=== PATIENT | female | born 1970 | race Caucasian/White ===

== ENCOUNTER 2022-11-08 21:32 | Day surgery (SDC) | payer OTHER, SELFPAY ==
[2022-11-08 21:35] VITALS: BP 128/92; PULSE 77; RESP 18; TEMP 36.2; O2SAT 99
--- NOTE | 2022-11-08 22:06 | ED_ITS ---
HPI - Abdominal Pain General Chief Complaint: Abdominal Pain Stated Complaint: Abdominal Pain, nausea Time Seen by Provider: 11/08/22 21:46 History of Present Illness HPI narrative: Pt is a 52 year old woman who comes in with 8 hours of diffuse abd pain. Pt had chicken salad for lunch and since that time has had nausea, vomiting, diffuse abd pain and diarrhea. No blood in stool or vomit. No fever or chills. Pt states that abd pain is moderate and diffuse. Pt has had some occasional similar symptoms previously which have been selflimited. Pt has had no sick contacts. No neurological symptoms. No recent travel. Related Data Home Medications Medication Instructions Recorded Confirmed levothyroxine 50 mcg capsule 50 mcg PO DAILY 11/08/22 11/08/22 omeprazole 20 mg capsule,delayed 20 mg PO DAILY 11/08/22 11/08/22 release spironolactone 100 mg tablet 100 mg PO DAILY 11/08/22 11/08/22 Allergies Allergy/AdvReac Type Severity Reaction Status Date / Time Sulfa (Sulfonamide Allergy Mild Vision Verified 11/08/22 21:41 Antibiotics) Changes Review of Systems Status of ROS Reports: 10 or more systems reviewed and unremarkable except as noted in History and below [facility] Medical History (Updated 11/09/22 @ 00:49 by Marcin Bear MD) Hypothyroidism Social History Smoking Status: Never smoker Do you use any of these nicotine containing products: None Second hand tobacco smoke exposure: No How often do you have a drink containing alcohol: monthly or less How many standard drinks containing alcohol do you have on a typical day: 1 or 2 How often do you have six or more drinks on one occasion: Never AUDIT-C Alcohol total score: 1 Non-prescribed substance use: denies use Exam Narrative: Exam Narrative: EXAM GENERAL: Patient appears comfortable and well. EYES: No scleral icterus. ENT: Tympanic membranes and oropharynx normal. THYROID: no thyroid nodules or thyromegaly. LYMPH: No supraclavicular or cervical lymphadenopathy. SKIN: Visible skin seen during exam normal or with benign process only. EXT: No dependent lower extremity pedal edema. HEART: Regular rate and rhythm with no murmurs, rubs, or gallops. LUNGS: Clear to auscultation bilaterally with no crackles or wheezes. ABD: Diffusely tender with no rebound. Hypoactive bowel sounds. PSYCH: Good eye contact, speech is not pressured. Const: Vital Signs, click to edit/add: Vital Signs - 24 hr 11/08/22 21:35 11/08/22 23:00 Temperature 97.1 F L Pulse Rate [Right Pulse Oximeter] 77 Respiratory Rate 18 Blood Pressure [Ri ght Upper Arm] 128/92 H Pulse Oximetry 99 99 Oxygen Delivery Me thod Room Air Course Course Hospital Course: Saline Lock placed. NS started as well as Zofran. Upreg, Ua, CBC, CMP, Lactate, Amylase, Troponin EKG requested as well as CT abd and pelvis. Reevaluation(s) Reevaluation #1: Significant elevation of LFT's noted. Left shift on CBC with a normal WBC. Bilirubin Elevated at 2.5. Ultrasound shows multiple gallstones with normal CBD and gallbladder wall thickness Case discussed with general surgery. Vital Signs Vital signs: Initial Vital Signs Temperature 97.1 F L 11/08/22 21:35 Temperature Source Temporal Artery Scan 11/08/22 21:35 Pulse Rate 77 11/08/22 21:35 Pulse Rhythm 11/08/22 21:35 Pulse Strength 3+ Normal 11/08/22 21:35 Respiratory Rate 18 11/08/22 21:35 Blood Pressure 128/92 H 11/08/22 21:35 Blood Pressure Mean 104 11/08/22 21:35 Blood Pressure Position Sitting 11/08/22 21:35 Pulse Oximetry 99 11/08/22 21:35 Oxygen Delivery Method 11/08/22 21:35 Vital Signs Temperature 97.1 F L 11/08/22 21:35 Pulse Rate 77 11/08/22 21:35 Respiratory Rate 18 11/08/22 21:35 Blood Pressure 128/92 H 11/08/22 21:35 Pulse Oximetry 99 11/08/22 21:35 Oxygen Delivery Method 11/08/22 21:35 Temperature 97.1 F L 11/08/22 21:35 Pulse Rate 77 11/08/22 21:35 Respiratory Rate 18 11/08/22 21:35 Blood Pressure 128/92 H 11/08/22 21:35 Pulse Oximetry 99 11/08/22 23:00 Oxygen Delivery Method 11/08/22 21:35 MDM - Abdominal Pain MDM Narrative Medical decision making narrative: Pt presents with mid to RUQ abd pain. LFT's abnormal. US shows multiple gallstones with normal wall thickness and cbd diameter. Pt case discussed with general surgery. Pt admitted for hydration and repeat labs in am. Surgeon to see in the am. No antibiotics at this time. Differential Diagnosis Differential diagnosis: Likely abdominal pain, acute appendicitis, calculus of kidney, constipation, diverticulitis, gastroenteritis, pancreatitis and small bowel obstruction Lab Data Labs: Lab Results 11/08/22 11/08/22 11/08/22 Range/Units 22:15 22:15 22:15 WBC 8.57 (4.50-11.00) K/uL RBC 4.90 (4.00-5.20) m/uL Hgb 14.2 (12.0-16.0) gm/dL Hct 42.4 (33.0-51.0) % MCV 87 (80-100) fL MCH 29 (26-34) pg MCHC 34 (32-36) gm/dL RDW Coeff of German 12.8 (11.5-15.5) % Plt Count 325 (140-440) K/uL Neut % (Auto) 81.8 H (42.0-72.0) % Lymph % (Auto) 10.7 L (20-44) % [place] % (Auto) 5.8 (0.0-11.0) % Eos % (Auto) 0.5 (0.0-7.0) % Baso % (Auto) 0.5 (0.0-3.0) % Neut # (Auto) 7.00 (1.7-7.0) K/uL Lymph # (Auto) 0.90 (0.90-2.90) K/uL [place] # (Auto) 0.50 (0.00-0.90) K/UL Eos # (Auto) 0.04 (0.00-0.50) K/uL Baso # (Auto) 0.04 (0.00-0.30) K/uL Sodium 137 (135-149) mmol/L Potassium 3.9 (3.6-5.1) mmol/L Chloride 105 (96-114) mmol/L Carbon Dioxide 27 (20-32) mmol/L BUN 16 (7-30) mg/dL Creatinine 0.7 (0.5-1.5) mg/dL Estimated GFR 105 ml/min Glucose 122 H (60-115) mg/dL Lactate (0.5-1.9) mmol/L Calcium 8.8 (8.4-10.6) mg/dL Total Bilirubin 2.5 H (0.1-1.5) mg/dL AST 875 H (12-35) U/L ALT 593 H (4-35) U/L Alkaline Phosphatase 121 (40-150) U/L Troponin I (0.01-0.04) ng/mL Total Protein 7.7 (6.0-8.3) g/dL Albumin 4.4 (3.3-5.0) g/dL Amylase 69 (18-89) U/L HCG, Qual (Negative) Urine Color Jenifer A (Yellow) Urine Appearance Clear (Clear) Urine pH 7.5 (5.0-8.5) Ur Specific [place] 1.020 (1.000-1.030) Urine Protein Negative (Negative) Urine Glucose (UA) Negative (Negative) Urine Ketones 2+ A (Negative) Urine Blood Negative (Negative) Urine Nitrite Negative (Negative) Urine Bilirubin 1+ A (Negative) Urine Urobilinogen 2.0 A (0.2-1.0) Ur Leukocyte Esterase Negative (Negative) 11/08/22 11/08/22 11/08/22 Range/Units 22:15 22:15 22:31 WBC (4.50-11.00) K/uL RBC (4.00-5.20) m/uL Hgb (12.0-16.0) gm/dL Hct (33.0-51.0) % MCV (80-100) fL MCH (26-34) pg MCHC (32-36) gm/dL RDW Coeff of German (11.5-15.5) % Plt Count (140-440) K/uL Neut % (Auto) (42.0-72.0) % Lymph % (Auto) (20-44) % [place] % (Auto) (0.0-11.0) % Eos % (Auto) (0.0-7.0) % Baso % (Auto) (0.0-3.0) % Neut # (Auto) (1.7-7.0) K/uL Lymph # (Auto) (0.90-2.90) K/uL [place] # (Auto) (0.00-0.90) K/UL Eos # (Auto) (0.00-0.50) K/uL Baso # (Auto) (0.00-0.30) K/uL Sodium (135-149) mmol/L Potassium (3.6-5.1) mmol/L Chloride (96-114) mmol/L Carbon Dioxide (20-32) mmol/L BUN (7-30) mg/dL Creatinine (0.5-1.5) mg/dL Estimated GFR ml/min Glucose (60-115) mg/dL Lactate 0.6 (0.5-1.9) mmol/L Calcium (8.4-10.6) mg/dL Total Bilirubin (0.1-1.5) mg/dL AST (12-35) U/L ALT (4-35) U/L Alkaline Phosphatase (40-150) U/L Troponin I < 0.01 L (0.01-0.04) ng/mL Total Protein (6.0-8.3) g/dL Albumin (3.3-5.0) g/dL Amylase (18-89) U/L HCG, Qual Negative (Negative) Urine Color (Yellow) Urine Appearance (Clear) Urine pH (5.0-8.5) Ur Specific [place] (1.000-1.030) Urine Protein (Negative) Urine Glucose (UA) (Negative) Urine Ketones (Negative) Urine Blood (Negative) Urine Nitrite (Negative) Urine Bilirubin (Negative) Urine Urobilinogen (0.2-1.0) Ur Leukocyte Esterase (Negative) Discharge Plan Discharge Clinical Impression: Cholelithiasis Patient Disposition: Admitted As Inpatient Condition: Stable Activity Level: Other Discharge Diet: Other Prescriptions: No Action spironolactone 100 mg tablet 100 mg PO DAILY levothyroxine 50 mcg capsule 50 mcg PO DAILY omeprazole 20 mg capsule,delayed release(DR/EC) 20 mg PO DAILY
[2022-11-08] MEDS: 0.9 % SODIUM CHLORIDE 1000 ml 1,000 ML IV (22:16)
[2022-11-08] MEDS: ONDANSETRON 2 MG/ML inj 4 MG IVP (22:16)
[2022-11-08 22:28] LABS: Lactate* 0.6 mmol/L (0.5-1.9)
[2022-11-08 22:33] LABS: Basophils Absolute Auto 0.04 K/uL (0.00-0.30); Basophils Percent Auto 0.5 % (0.0-3.0); Eosinophils Absolute Auto 0.04 K/uL (0.00-0.50); Eosinophils Percent Auto 0.5 % (0.0-7.0); Hematocrit 42.4 % (33.0-51.0); Hemoglobin* 14.2 gm/dL (12.0-16.0); Immature Granulocytes Abs Auto 0.06 K/uL (0.00-0.30); Immature Granulocytes Pct Auto 0.7 %; Lymphocytes Percent Auto 10.7 % (20-44); Mean Corpuscular HGB Conc 34 gm/dL (32-36); Mean Corpuscular Hemoglobin 29 pg (26-34); Mean Corpuscular Volume 87 fL (80-100); Monocytes Percent Auto 5.8 % (0.0-11.0); Neutrophils Percent Auto 81.8 % (42.0-72.0); Platelet Count* 325 K/uL (140-440); RDW Coefficient of Variation % 12.8 % (11.5-15.5); White Blood Count* 8.57 K/uL (4.50-11.00)
[2022-11-08 22:34] LABS: Appearance Urine Clear (Clear); Bilirubin Urine 1+ (Negative); Blood Urine Negative (Negative); Color Urine Amber (Yellow); Glucose Urine Negative (Negative); Ketones Urine 2+ (Negative); Leukocyte Esterase Urine Negative (Negative); Nitrite Urine Negative (Negative); Protein Urine Negative (Negative); pH Urine 7.5 (5.0-8.5)
[2022-11-08 22:38] LABS: Slide Review Reflex No
[2022-11-08 22:46] LABS: Albumin* 4.4 g/dL (3.3-5.0); Chloride* 105 mmol/L (96-114); Potassium* 3.9 mmol/L (3.6-5.1); Sodium* 137 mmol/L (135-149)
[2022-11-08] MEDS: HYDROmorphone 0.5 mg/0.5 ml inj IVP (22:47)
[2022-11-08 22:48] LABS: HCG Qualitative* Negative (Negative)
[2022-11-08 22:49] LABS: Alanine Aminotransferase* 593 U/L (4-35); Alkaline Phosphatase* 121 U/L (40-150); Amylase* 69 U/L (18-89); Bilirubin Total* 2.5 mg/dL (0.1-1.5); Blood Urea Nitrogen* 16 mg/dL (7-30); Calcium* 8.8 mg/dL (8.4-10.6); Carbon Dioxide* 27 mmol/L (20-32); Creatinine* 0.7 mg/dL (0.5-1.5); Estimated Glomerular Filt Rate 105 ml/min; Glucose* 122 mg/dL (60-115); Total Protein* 7.7 g/dL (6.0-8.3)
[2022-11-08 23:00] VITALS: O2SAT 99
[2022-11-08 23:03] LABS: Aspartate Amino Transferase* 875 U/L (12-35); Troponin I* < 0.01 ng/mL (0.01-0.04)
--- NOTE | 2022-11-08 23:06 | CRLHL7_ITS ---
For Patients: As a result of the Century Cures Act, medical imaging exams and procedure reports are released immediately into your electronic medical record. You may view this report before your referring provider. If you have questions, please contact your health care provider. INDICATION: Right upper quadrant pain with nausea and bloating TECHNIQUE: Ultrasound abdomen limited. Sonographic images of the right upper quadrant were obtained using willams-scale and color Doppler images. COMPARISON: None FINDINGS: Liver: The liver measures 18.0 cm in length. Normal in echotexture. No masses. No intrahepatic biliary dilatation. Gallbladder: Multiple mobile stones. Normal wall thickness. No pericholecystic fluid. Common bile duct: 6 mm. Pancreas: Normal. Right kidney: 11.5 x 4.3 x 4.9 cm. Normal echotexture and cortex. No masses, stones, or hydronephrosis. IMPRESSION: Cholelithiasis without evidence for cholecystitis. Mild hepatomegaly. Dictated by Chanel Rothman MD @ 11/09/2022 12:43:25 AM (Electronically Signed)
[2022-11-09] VITALS (22 sets, daily range): BP systolic 83–112; BP diastolic 51–82; PULSE 59–87; RESP 16–18; TEMP 35.9–36.6; O2SAT 95–100
[2022-11-09 01:10] LABS: Bilirubin Direct* 1.1 mg/dL (0.0-0.5)
[2022-11-09 01:51] LABS: PCR FLU A Negative PCR FLU A (Negative); PCR FLU B Negative PCR FLU B (Negative)
[2022-11-09 01:52] LABS: SARS PCR* Negative SARS-CoV-2 (Negative)
--- NOTE | 2022-11-09 02:00 | ED.NURSE ---
Report to [facility]ER[facility]. Patient transported to [address] with all belongings.
--- NOTE | 2022-11-09 03:14 | P.IMCN_ITS ---
Date of Consult Consult date: 11/09/22 Primary Care Provider: Not a Local Provider Consult Narrative Narrative: Tripp Rojas Hospitalist ADMISSION SUPPORT NOTE eHospitalist was contacted by Dr. Bear with request of admission support. Chief complaint: Abdominal pain with nausea and vomiting HPI: The patient reports that today she went out for lunch had a green salad with egg, tuna and chicken. She will eat the chicken only but while eating felt really nauseated. She did not finish her meal because of the nausea. She left the restaurant and nausea worsened. At home she tried Gas-X and Pepto-Bismol as well as peppermint tea which has helped in the past however her symptoms only worsen and so she came in for evaluation. She reports abdominal pain feels like abdominal bloating and discomfort to the point where she felt like she needed an epidural. She reports her symptoms started shortly before [place] with nausea, occasional vomiting abdominal discomfort that seem to get better with Gas-X and peppermint tea. She thought all along it was just bad gas. It seems that most of these episodes was associated with food but not always. The pain was relieved with Dilaudid given in the ED. Review of systems other than mentioned above is negative Home Medications/Pertinent Medical History/Pertinent Social History: Reviewed see EMR for details Review of Systems Status of ROS: Reports: 10 or more systems reviewed and unremarkable except as noted in History and below [facility] Medical History (Updated 11/09/22 @ 00:49 by Marcin Bear MD) Hypothyroidism Social History Smoking Status: Never smoker Do you use any of these nicotine containing products: None Second hand tobacco smoke exposure: No How often do you have a drink containing alcohol: monthly or less How many standard drinks containing alcohol do you have on a typical day: 1 or 2 How often do you have six or more drinks on one occasion: Never AUDIT-C Alcohol total score: 1 Non-prescribed substance use: denies use Meds Home Medications and Allergies Home Medications Medication Instructions Recorded Confirmed Type levothyroxine 50 mcg capsule 50 mcg PO DAILY 11/08/22 11/08/22 History omeprazole 20 mg capsule,delayed 20 mg PO DAILY 11/08/22 11/08/22 History release spironolactone 100 mg tablet 100 mg PO DAILY 11/08/22 11/08/22 History Allergies Allergy/AdvReac Type Severity Reaction Status Date / Time Sulfa (Sulfonamide Allergy Mild Vision Verified 11/08/22 21:41 Antibiotics) Changes Exam Narrative: Exam Narrative: Exam (performed via interactive video with assistance of bedside nurse): General: Alert, cooperative, no acute distress HEENT: Oral mucosa pink and moist without erythema Lungs: Clear to auscultation bilaterally without crackle or wheeze CV: Regular rate and rhythm without loud murmur rub or gallop Abd: Bowel sounds hypoactive, does exhibit signs of pain with palpation in the right upper quadrant done by bedside nurse Ext: No pitting edema noted Skin: No rashes, bruises or lesions appreciated on gross visualization of exposed skin Neuro: Alert, oriented x 3. CN III -VII, XI, XII grossly intact, moves all extremities without any significant focal deficit appreciated by nurse Const: Vital Signs, click to edit/add: Vital Signs - 24 hr 11/08/22 21:35 11/08/22 23:00 Temperature 97.1 F L Pulse Rate [Right Pulse Oximeter] 77 Respiratory Rate 18 Blood Pressure [Ri ght Upper Arm] 128/92 H Pulse Oximetry 99 99 Oxygen Delivery Me thod Room Air Labs Labs: Short CBC 11/08/22 Range/Units 22:15 WBC 8.57 (4.50-11.00) K/uL Hgb 14.2 (12.0-16.0) gm/dL Hct 42.4 (33.0-51.0) % Plt Count 325 (140-440) K/uL BMP 11/08/22 22:15 Sodium 137 Potassium 3.9 Chloride 105 Carbon Dioxide 27 BUN 16 Creatinine 0.7 Glucose 122 H Calcium 8.8 Cardiac Enzymes 11/08/22 Range/Units 22:15 Troponin I < 0.01 L (0.01-0.04) ng/mL Liver Function 11/08/22 11/09/22 Range/Units 22:15 01:10 Total Bilirubin 2.5 H (0.1-1.5) mg/dL Direct Bilirubin 1.1 H (0.0-0.5) mg/dL AST 875 H (12-35) U/L ALT 593 H (4-35) U/L Alkaline Phosphatase 121 (40-150) U/L Albumin 4.4 (3.3-5.0) g/dL Urine 11/08/22 Range/Units 22:15 Urine Color Jenifer A (Yellow) Urine Appearance Clear (Clear) Urine pH 7.5 (5.0-8.5) Ur Specific [place] 1.020 (1.000-1.030) Urine Protein Negative (Negative) Urine Glucose (UA) Negative (Negative) Assessment and Plan Assessment and plan (1) Cholelithiasis: Status: Acute Plan Recent lab/abdominal ultrasound: Reviewed see EMR for details Assessment and Plan: 1. Abdominal pain-likely secondary to gallstone disease. Keep NPO. General surgery to evaluate. She likely needs the gallbladder removed at some point in the near future. Dilaudid as needed 2. Transaminitis-secondary to #1. Monitor 3. Hypothyroidism-continue Synthroid 4. GERD-stable on Protonix 5. 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 DVT prophylaxis-Lovenox 7. CODE STATUS full code per documentation Chart review was performed as well as evaluation of the patient via video. Thank you for involving ehospitalist. Please contact [phone] if further assistance is needed.
[2022-11-09] MEDS: 0.9 % SODIUM CHLORIDE 1000 ml 1,000 ML 75 ML IV (03:26)
[2022-11-09] MEDS: ONDANSETRON 2 MG/ML inj 4 MG IVP ×2 (03:36→11:53)
[2022-11-09] MEDS: HYDROmorphone 0.5 mg/0.5 ml inj IVP (03:37)
[2022-11-09] MEDS: SODIUM CHLORIDE 0.9 % (FLUSH) 10 ML SYRINGE 5 ML IVF (03:38)
[2022-11-09 07:03] LABS: Basophils Absolute Auto 0.06 K/uL (0.00-0.30); Basophils Percent Auto 0.8 % (0.0-3.0); Eosinophils Absolute Auto 0.15 K/uL (0.00-0.50); Immature Granulocytes Abs Auto 0.01 K/uL (0.00-0.30); Immature Granulocytes Pct Auto 0.1 %; Lymphocytes Absolute Auto 1.55 K/uL (0.90-2.90); Lymphocytes Percent Auto 20.6 % (20-44); Mean Corpuscular HGB Conc 33 gm/dL (32-36); Mean Corpuscular Hemoglobin 29 pg (26-34); Mean Corpuscular Volume 88 fL (80-100); Neutrophils Absolute Auto 5.29 K/uL (1.7-7.0); Neutrophils Percent Auto 70.5 % (42.0-72.0); Platelet Count* 267 K/uL (140-440); Red Blood Count 4.44 m/uL (4.00-5.20); White Blood Count* 7.51 K/uL (4.50-11.00)
[2022-11-09 07:21] LABS: Slide Review Reflex No
[2022-11-09 07:22] LABS: Albumin* 3.7 g/dL (3.3-5.0)
[2022-11-09 07:25] LABS: Alkaline Phosphatase* 104 U/L (40-150); Bilirubin Direct* 1.3 mg/dL (0.0-0.5); Bilirubin Total* 3.3 mg/dL (0.1-1.5); Total Protein* 6.6 g/dL (6.0-8.3)
--- NOTE | 2022-11-09 07:34 | PC.NURSE ---
END OF SHIFT NOTE: PT IS PLEASANT AND COOPERATIVE. PT DENIES CP & SOB. PAIN TO RUQ WITH OCCASIONAL NAUSEA THAT IS RELIEVED DILAUDID AND ZOFRAN. VSS ON RA; AFEBRILE. PT IS TO HAVE SURGERY THIS MORNING. PT HAS NPO SINCE 99.
[2022-11-09 07:42] LABS: Aspartate Amino Transferase* 876 U/L (12-35)
[2022-11-09 07:58] LABS: Alanine Aminotransferase* 826 U/L (4-35)
[2022-11-09] MEDS: PANTOPRAZOLE SODIUM 40 MG INJ IVP (08:29)
--- NOTE | 2022-11-09 08:36 | CRLHL7_ITS ---
For Patients: As a result of the Century Cures Act, medical imaging exams and procedure reports are released immediately into your electronic medical record. You may view this report before your referring provider. If you have questions, please contact your health care provider. INDICATION : Laparoscopic cholecystectomy. TECHNIQUE : Intraoperative cholangiogram. Contrast injected via gallbladder neck and cystic duct. FINDINGS : Fluoroscopy time was 18.7 seconds. One image was obtained. IMPRESSION : Normal caliber intra and extrahepatic ducts. No filling defects. Contrast seen within the duodenum. Normal intraoperative cholangiogram. Dictated by Payam López MD @ 11/11/2022 9:10:55 AM (Electronically Signed)
--- NOTE | 2022-11-09 08:58 | P.GSCN_ITS ---
History of Present Illness Consult details Date Seen: 11/09/22 Consult date: 11/09/22 Narrative: Patient presented to the hospital with persistent right upper quadrant and epigastric abdominal pain. Yesterday around lunch she was eating chicken salad, tuna salad and some egg salad. Shortly after beginning eating she started to feel very nauseous. She denies any emesis. She also reports that she was feeling very gassy with pain in her upper abdomen. She has had pain like this a few times over the last several months. The episodes usually last for few hours, but then completely go away. She tried to relieve the pain with peppermint tea, Gas-X and Pepto-Bismol, with no improvement. She denies any diarrhea or constipation. She has never had abdominal surgery before. She received Dilaudid 1 time overnight. This morning she does feel like her pain is improved. Review of Systems Status of ROS: Reports: 10 or more systems reviewed and unremarkable except as noted in History and below [facility] Medical History (Updated 11/09/22 @ 00:49 by Marcin Bear MD) Hypothyroidism Social History Smoking Status: Never smoker Do you use any of these nicotine containing products: None Second hand tobacco smoke exposure: No How often do you have a drink containing alcohol: monthly or less How many standard drinks containing alcohol do you have on a typical day: 1 or 2 How often do you have six or more drinks on one occasion: Never AUDIT-C Alcohol total score: 1 Non-prescribed substance use: denies use Meds Home Medications and Allergies Home Medications Medication Instructions Recorded Confirmed Type levothyroxine 50 mcg capsule 50 mcg PO DAILY 11/08/22 11/08/22 History omeprazole 20 mg capsule,delayed 20 mg PO DAILY 11/08/22 11/08/22 History release spironolactone 100 mg tablet 100 mg PO DAILY 11/08/22 11/08/22 History Allergies Allergy/AdvReac Type Severity Reaction Status Date / Time Sulfa (Sulfonamide Allergy Mild Vision Verified 11/08/22 21:41 Antibiotics) Changes Exam Narrative: Exam Narrative: General: Alert and oriented, no acute distress Respiratory: Equal breath rise bilaterally, maintained on room air CV: Regular rhythm rate, well perfused Abdomen: Soft, nontender and nondistended. Some mild discomfort with palpation in the right upper quadrant, no guarding or rebound. Const: Vital Signs, click to edit/add: Vital Signs - 24 hr 11/08/22 21:35 11/08/22 23:00 11/09/22 03:00 Temperature 97.1 F L Pulse Rate [Pulse Oximeter] Pulse Rate [Right Pulse Oximeter] 77 Respiratory Rate 18 18 Blood Pressure [Le ft Arm] Blood Pressure [Ri ght Arm] Blood Pressure [Ri ght Upper Arm] 128/92 H Pulse Oximetry 99 99 100 Oxygen Delivery Me thod Room Air Room Air 11/09/22 03:00 11/09/22 07:00 Temperature 97.7 F 97.9 F Pulse Rate [Pulse Oximeter] 75 75 Pulse Rate [Right Pulse Oximeter] Respiratory Rate 18 16 Blood Pressure [Le ft Arm] 105/70 Blood Pressure [Ri ght Arm] 108/82 Blood Pressure [Ri ght Upper Arm] Pulse Oximetry 100 99 Oxygen Delivery Me thod Room Air Room Air Results Labs Labs: Abnormal lab results 11/08/22 11/08/22 11/08/22 Range/Units 22:15 22:15 22:15 Neut % (Auto) 81.8 H (42.0-72.0) % Lymph % (Auto) 10.7 L (20-44) % Glucose 122 H (60-115) mg/dL Total Bilirubin 2.5 H (0.1-1.5) mg/dL Direct Bilirubin (0.0-0.5) mg/dL AST 875 H (12-35) U/L ALT 593 H (4-35) U/L Troponin I (0.01-0.04) ng/mL Urine Color Jenifer A (Yellow) Urine Ketones 2+ A (Negative) Urine Bilirubin 1+ A (Negative) Urine Urobilinogen 2.0 A (0.2-1.0) 11/08/22 11/09/22 11/09/22 Range/Units 22:15 01:10 06:04 Neut % (Auto) (42.0-72.0) % Lymph % (Auto) (20-44) % Glucose (60-115) mg/dL Total Bilirubin 3.3 H (0.1-1.5) mg/dL Direct Bilirubin 1.1 H 1.3 H (0.0-0.5) mg/dL AST 876 H (12-35) U/L ALT 826 H (4-35) U/L Troponin I < 0.01 L (0.01-0.04) ng/mL Urine Color (Yellow) Urine Ketones (Negative) Urine Bilirubin (Negative) Urine Urobilinogen (0.2-1.0) Diabetes panel 11/08/22 11/09/22 Range/Units 22:15 06:04 Sodium 137 (135-149) mmol/L Potassium 3.9 (3.6-5.1) mmol/L Chloride 105 (96-114) mmol/L Carbon Dioxide 27 (20-32) mmol/L BUN 16 (7-30) mg/dL Creatinine 0.7 (0.5-1.5) mg/dL Glucose 122 H (60-115) mg/dL Calcium 8.8 (8.4-10.6) mg/dL AST 875 H 876 H (12-35) U/L ALT 593 H 826 H (4-35) U/L Alkaline Phosphatase 121 104 (40-150) U/L Total Protein 7.7 6.6 (6.0-8.3) g/dL Albumin 4.4 3.7 (3.3-5.0) g/dL Calcium panel 11/08/22 11/09/22 Range/Units 22:15 06:04 Calcium 8.8 (8.4-10.6) mg/dL Albumin 4.4 3.7 (3.3-5.0) g/dL Pituitary panel 11/08/22 Range/Units 22:15 Sodium 137 (135-149) mmol/L Potassium 3.9 (3.6-5.1) mmol/L Chloride 105 (96-114) mmol/L Carbon Dioxide 27 (20-32) mmol/L BUN 16 (7-30) mg/dL Creatinine 0.7 (0.5-1.5) mg/dL Glucose 122 H (60-115) mg/dL Calcium 8.8 (8.4-10.6) mg/dL Adrenal panel 11/08/22 11/09/22 Range/Units 22:15 06:04 Sodium 137 (135-149) mmol/L Potassium 3.9 (3.6-5.1) mmol/L Chloride 105 (96-114) mmol/L Carbon Dioxide 27 (20-32) mmol/L BUN 16 (7-30) mg/dL Creatinine 0.7 (0.5-1.5) mg/dL Glucose 122 H (60-115) mg/dL Calcium 8.8 (8.4-10.6) mg/dL Total Bilirubin 2.5 H 3.3 H (0.1-1.5) mg/dL AST 875 H 876 H (12-35) U/L ALT 593 H 826 H (4-35) U/L Alkaline Phosphatase 121 104 (40-150) U/L Total Protein 7.7 6.6 (6.0-8.3) g/dL Albumin 4.4 3.7 (3.3-5.0) g/dL All other labs normal. Imaging Abdominal ultrasound report/results: report reviewed and image reviewed Assessment and Plan Assessment and plan (1) Cholelithiasis: Status: Acute Plan Patient is a healthy 52-year-old female who presents with persistent right upper quadrant and epigastric abdominal pain. Workup was obtained in the emergency department with ultrasound demonstrating gallstones and lab significant for elevated LFTs (bilirubin, ALT and AST). On imaging the common bile duct did not appear dilated at 6 mm. Repeat labs this morning do show an increase in her direct bilirubin with persistently elevated ALT and AST. Clinical history and workup consistent with acute cholecystitis with concern for possible choledocholithiasis. I had a detailed conversation with the patient regarding the diagnosis of acute cholecystitis and choledocholithiasis. We discussed the treatment options including observation with diet modification and laparoscopic cholecystectomy. We discussed the risks of surgery (including but not limited to) the risks of bleeding, infection, injury to other structures in the abdomen including bile duct injury, bile leak and conversion to an open operation. We discussed the possibility that the patient's pain not improve with surgery. We discussed the possibility of permanent post-operative diarrhea that may require medical management. Additionally, the conceivably of complications requiring additional surgery or further hospitalization were also discussed including the risks of LA, respiratory failure, stroke and blood clots. I also discussed with the patient the rationale of an intraoperative cholangiogram to evaluate for stones within the common bile duct. If stones are present I would try to flush out the stones with glucagon and saline. Given the size of her duct I do not think it is amendable to a choledochal scope. We reviewed that if stones persist postoperatively she may need an additional procedure and transferred to another hospital. The patient voiced an understanding of our conversation, had the opportunity to ask questions, agreed to accept the risks of surgery and asked that we proceed with surgery. -OR for laparoscopic cholecystectomy and intraoperative cholangiogram
[2022-11-09] MEDS: PIPERACILLIN/TAZOBACTAM 3.375 GM in 0.9 % SODIUM CHLORIDE Mini-bag 100 ML IVPB (09:30)
[2022-11-09] MEDS: LACTATED RINGERS 1000 ML 1,000 ML 100 ML IV (09:45)
--- NOTE | 2022-11-09 09:53 | SUR.OPER ---
Patient voided prior to departure from Med Surg Room. Patient was transferred via Room bed to OR4. Patient was assisted to the OR table with no concerns.
[2022-11-09] MEDS: 0.9 % SODIUM CHLORIDE 1000 ml 1,000 ML IV (10:02)
[2022-11-09] MEDS: IOPAMIDOL 50 ML VIAL INJECTION (10:30)
[2022-11-09] MEDS: BUPIVACAINE 0.5% 30 ML INJECTION (11:00)
--- NOTE | 2022-11-09 11:11 | P.GSOP_ITS ---
Operative Note Date of procedure: 11/09/22 Pre-op diagnosis: Acute cholecystitis, choledocholithiasis Post-op diagnosis: Acute cholecystitis Type of Procedure: Laparoscopic cholecystectomy with intraoperative cholangiogram Procedure Description: After discussing the risks and benefits of the procedure, the patient signed informed consent.? The operative site was marked and the patient was brought to the operating room and placed on the operating table in supine position.? Care was taken to pad the patient's pressure points.?? The patient was then intubated by anesthesia.?? The operative site was then prepped and draped in the usual sterile fashion.? A time-out was then performed. Entrance to the abdomen was gained via a 5 mm Visiport in the left upper quad rant. The abdomen was insufflated and briefly surveyed for signs of injury. There was none. 11 mm umbilical port was placed as well as 2 working ports along the right costal margin. Patient was then placed in reverse Trendelenburg position with the right side up. The gallbladder fundus was grasped and retracted cephalad. The infundibulum was grasped. The gallbladder and base of the gallbladder were very edematous. A combination of hook cautery and blunt dissection was used to carefully dissect out the cystic duct and artery until they could clearly be seen entering the gallbladder without any intervening structures. The gallbladder was dissected off the cystic plate to achieve the critical view. Once this was achieved the cystic artery was clipped with 2 clips proximally and 1 clip distally and transected with the scissors. A single clip was placed distally on the cystic duct and the cystic duct was partially transected. The intra operative cholangiogram catheter was then attempted to be inserted into the cystic duct. I was unable to initially insert the catheter secondary to stones and sludge within the cystic duct. The stones and sludge were milked out of the cystic duct carefully, this allowed passage of the catheter into the duct. The C-arm was brought onto the field called and a cholangiogram performed. Evidence on cholangiogram of some small stones within the cystic duct, no stones in the common bile duct with contrast flowing freely into the duodenum. The right left hepatic duct were also easily visualized. The C-arm and cholangiogram catheter were then removed from the field. The stones in the cystic duct were further milked out of the opening. Two clips were placed proximal on the cystic duct and the duct was completely transected with laparoscopic scissors. An 0 Vicryl endoloop was also placed just below the clips, to ensure complete closure. The gallbladder was then taken off of the liver bed. And removed from the abdomen using an Endo-Catch bag. The gallbladder bed was surveyed for hemostasis. A small amount of bile and stones which had spilled was suctioned from the abdomen. The umbilical port fascia was closed via the Noah-Cece with an 0 Vicryl stitch. The ports were then removed under direct vision. The skin was closed with absorbable subcuticular suture. Instrument sponge and needle counts were correct at the end of the case. The patient was then woken and transferred to the PACU in stable condition. ? The patient tolerated the procedure well. Indications: Patient is a 52-year-old female who presented to the emergency department with workup consistent for acute cholecystitis and choledocholithiasis. We discussed the risks of surgery (including but not limited to) the risks of bleeding, infection, injury to other structures in the abdomen including bile duct injury, bile leak and conversion to an open operation. We discussed the possibility that the patient's pain not improve with surgery. We discussed the possibility of permanent post-operative diarrhea that may require medical management. Additionally, the conceivably of complications requiring additional surgery or further hospitalization were also discussed including the risks of ID, respiratory failure, stroke and blood clots. The patient voiced an understanding of our conversation, had the opportunity to ask questions, agreed to accept the risks of surgery and asked that we proceed with surgery. Findings: Cholelithiasis, edema and cholecystitis. Stones impacted within the cystic duct, no evidence of choledocholithiasis. Anesthesia: GETA Surgeon: Micki Mercado MD Estimated blood loss (mL): 5 Specimen: Gallbladder Condition: stable Disposition: floor
--- NOTE | 2022-11-09 11:29 | W.ANESCHARGE ---
Anesthesia Charges Start Date/Time Anesthesia Start Date: 11/09/22 Anesthesia Start Time: 09:18 Stop Date/Time Anesthesia Stop Date: 11/09/22 Anesthesia Stop Time: 11:25 Summary Emergency: Yes
[2022-11-09] MEDS: fentaNYL 100 MCG/2 ML inj 50 MCG IVP ×2 (11:34→11:47)
[2022-11-09] MEDS: MEPERIDINE 25 MG/ML INJ 12.5 MG IVP (11:40)
[2022-11-09] MEDS: KETOROLAC 15 MG/ML inj IVP (16:24)
--- NOTE | 2022-11-09 16:43 | PC.NURSE ---
Pt a/o on return from PACU, able to verbalize needs. Expresses mild nausea with zofran previously given. Room darkened, aromatherapy patch placed, and small amount of ice chips. Pt allowed to rest and later verbalized nausea had resolved. BP's soft, as low as 80 systolically. MAP greater than 68 and pt asymptomatic. Advanced to regular diet and pt again c/o of mild nausea that has since resolved. Sipping fluids. Voided x2. Lap sites x3 C,D,&I with ice pack in place. Plans to discharge home with family later this evening.
--- NOTE | 2022-11-09 18:50 | PC.NURSE ---
Pt discharged to home via wheelchair in the care of her S/O and daughter at 1746. Pt and family verbalized understanding of discharge instructions and follow up appointments.
== END 2022-11-09 18:53 | disposition home or self-care (01) ==
LOC: ED 11-09 00:49 → SS 11-09 02:07 → MEDSURG 11-09 02:09
PROVIDERS: Internal Medicine; Emergency Provider Internal Medicine; Visit Provider Surgery
PROC: 0FT44ZZ Resection of Gallbladder, Percutaneous Endoscopic Approach (ICD-10-PCS; CPT 47562; principal; 2022-11-09 09:00)
DX: K80.00 Calculus of gallbladder with acute cholecystitis without obstruction (principal); E03.9 Hypothyroidism, unspecified; K21.9 Gastro-esophageal reflux disease without esophagitis; R74.01 Elevation of levels of liver transaminase levels; L70.8 Other acne
CPT/HCPCS: 47563; 00790; 36415; 74300; 76000; 76705; 80053; 80076; 81003; 82150; 82248; 83605; 84484; 84703; 85025; 87631; 88304; 93005; 94761; 99140; 99283; 99285; C9113; J0330; J1100; J1170; J1885; J2175; J2250; J2370; J2405; J2543; J2704; J2710; J3010; J3490; J7030; J7120; Q9967